=== PATIENT | female | born 1960 | race Caucasian/White ===

== ENCOUNTER 2018-08-08 19:29 | Inpatient (IN) | payer MEDICAID ==
[2018-08-08] MEDS ORDERED: NS 1,000 ML IV ONE ×2 (19:51)
--- NOTE | 2018-08-08 19:54 | EDPHY ---
H & P Stated Complaint: diabetic w/ high sugar Time Seen by Provider: 08/08/18 19:39 HPI/ROS: CHIEF COMPLAINT: Vomiting, hyperglycemia HISTORY OF PRESENT ILLNESS: Patient is diabetic female presents the emergency department vomiting hyperglycemia. The patient complains of generalized abdominal pain, chest pain and blurry vision earlier today. The patient denies any history of fall or trauma. She reports she has been using her insulin as per usual. She reports her blood sugars have been in the high 200 range by her report. Patient reports that she is also developed diarrhea. She complains of generalized abdominal pain. REVIEW OF SYSTEMS: A comprehensive 10 point review of systems is otherwise negative aside from elements mentioned in the history of present illness. Source: Patient - Personal History Current Tetanus/Diphtheria Vaccine: Unsure Current Tetanus Diphtheria and Acellular Pertussis (TDAP): Unsure - Medical/Surgical History Hx Asthma: No Hx Chronic Respiratory Disease: No Hx Diabetes: Yes Hx Cardiac Disease: No Hx Renal Disease: No Hx Cirrhosis: No Hx Alcoholism: No Hx HIV/AIDS: No Hx Splenectomy or Spleen Trauma: No Other PMH: DM2 - Social History Smoking Status: Never smoked - Physical Exam Exam: General Appearance: Obese female Eyes: Pupils equal and round no pallor or injection ENT, Mouth: Dry mucous membranes Respiratory: There are no retractions, lungs are clear to auscultation Cardiovascular: Tachycardic Gastrointestinal: Generalized abdominal tenderness Neurological: Moves all 4 extremities with 5/5 strength Skin: Warm and dry, no rashes, old ecchymosis noted on legs Musculoskeletal: Neck is supple nontender Extremities: symmetrical, full range of motion Psychiatric: Patient is oriented X 3, there is no agitation Constitutional: Initial Vital Signs Temperature (C) 36.8 C 08/08/18 19:32 Heart Rate 115 H 08/08/18 19:32 Respiratory Rate 22 H 08/08/18 19:32 Blood Pressure 109/48 L 08/08/18 19:32 O2 Sat (%) 98 08/08/18 19:32 O2 Delivery Mode Room Air Allergies/Adverse Reactions: ciprofloxacin [From Cipro HC] Allergy (Verified 08/08/18 19:35) insulin glargine [From Lantus U-100 Insulin] Allergy (Verified 08/08/18 19:36) Home Medications: Medication Instructions Recorded Carvedilol [Coreg (*)] 25 mg PO BIDMEAL 08/08/18 FLUoxetine [Prozac 20 MG (*)] 40 mg PO DAILY 08/08/18 Insulin Aspart [Novolog Flexpen] 0 unit SQ TIDMEAL 08/08/18 Insulin Detemir [Levemir Flextouch] 15 units SQ BID 08/08/18 Losartan Potassium [Cozaar 50 mg 50 mg PO DAILY 08/08/18 (*)] Multivitamins [Multivitamin (*)] 1 each PO DAILY 08/08/18 [place]-3 Fatty Acids [Fish Oil 1000 1,000 mg PO DAILY 08/08/18 mg (*)] Medical Decision Making - Diagnostics EKG Interpretation: EKG: Complete interpretation has been separately recorded in the [facility] archive. Summary impression: Sinus rhythm, rate 113, right bundle branch block Imaging Results: Imaging Impressions Chest X-Ray 08/08/18 19:48 Impression: Normal frontal view. ED Course/Re-evaluation: The patient presents to the ED with hyperglycemia, vomiting and acidosis consistent with acute diabetic ketoacidosis. Patient's blood sugar is greater than 1000 and her anion gap is 29. The patient had an IV established. She received 2 L of normal saline. The DKA protocol has been initiated The patient's initial potassium was significantly. She is started on insulin drip. Consultation is made with the hospitalist service for ICU admission. The patient was noted to have an initial potassium of 6.9. She was treated with a bolus of insulin and 1 g of IV calcium and 50 mEq of sodium bicarb. Dr. Matt Freeman is evaluating the patient in the ED at 8:45 p.m.. Repeat I-STAT performed at 9:00 p.m. demonstrates improvement of the patient's potassium to 5.6. Glucose is still greater than 700. The patient will be transferred to the ICU for further care. Differential Diagnosis: Differential diagnosis considered includes renal failure, dehydration, diabetic ketoacidosis, metabolic abnormality Critical Care Time: Critical care time exclusive of procedures and exclusive of the PA's time was 35 minutes, performed by myself, Manjinder Harris MD. The patient presents the ED with diabetic ketoacidosis, renal failure and mild hyperkalemia. She will require admission to the intensive care unit. She was started on insulin drip in the emergency department. - Data Points Laboratory Results: Laboratory Results 08/08/18 19:43 08/08/18 19:43 08/08/18 08/08/18 08/08/18 20:05 19:48 19:46 WBC RBC Hgb POC Hgb 15.6 gm/dL gm/dL (12.6-16.3) Hct POC Hct 46 % % (38-47) MCV MCH MCHC RDW Plt Count MPV Neut % (Auto) Lymph % (Auto) [place] % (Auto) Eos % (Auto) Baso % (Auto) Nucleat RBC Rel Count Absolute Neuts (auto) Absolute Lymphs (auto) Absolute Monos (auto) Absolute Eos (auto) Absolute Basos (auto) Absolute Nucleated RBC Immature Gran % Immature Gran # Puncture Site VENOUS Patient Temperature 37.0 DEGREES DEGREES VBG pH 7.07 L (7.31-7.42) VBG HCO3 8 mEQ/L L mEQ/L (22-26) VBG Total CO2 9 mEq/L L mEq/L (21-27) VBG O2 Saturation 84 % H % (65-75) VBG Base Excess -21.6 mEq/L L mEq/L (-2.5-2.5) Mixed VBG pCO2 28 mmHg L mmHg (40-44) Mixed VBG pO2 66 mmHG H mmHG (35-40) POC Sodium 127 mEq/L L mEq/L (135-145) Sodium POC Potassium 6.4 mEq/L H* mEq/L (3.3-5.0) Potassium POC Chloride 98 mEq/L mEq/L (97-110) Chloride Carbon Dioxide Anion Gap POC BUN 42 mg/dL H mg/dL (7-23) BUN Creatinine POC Creatinine 1.8 mg/dL H mg/dL (0.6-1.0) Estimated GFR Glucose POC Glucose > 700 mg/dL H* mg/dL (70-100) Calcium Total Bilirubin Conjugated Bilirubin Unconjugated Bilirubin AST ALT Alkaline Phosphatase POC Troponin I 0.04 ng/mL ng/mL (0.00-0.08) Total Protein Albumin Lipase Beta-Hydroxybutyrate 08/08/18 08/08/18 08/08/18 19:43 19:43 19:43 WBC RBC Hgb POC Hgb Hct POC Hct MCV MCH MCHC RDW Plt Count MPV Neut % (Auto) Lymph % (Auto) [place] % (Auto) Eos % (Auto) Baso % (Auto) Nucleat RBC Rel Count Absolute Neuts (auto) Absolute Lymphs (auto) Absolute Monos (auto) Absolute Eos (auto) Absolute Basos (auto) Absolute Nucleated RBC Immature Gran % Immature Gran # Puncture Site Patient Temperature VBG pH 7.11 L (7.31-7.42) VBG HCO3 VBG Total CO2 VBG O2 Saturation VBG Base Excess Mixed VBG pCO2 Mixed VBG pO2 POC Sodium Sodium 131 mEq/L L mEq/L (135-145) POC Potassium Potassium 6.9 mEq/L H* mEq/L (3.3-5.0) POC Chloride Chloride 93 mEq/L L mEq/L (97-110) Carbon Dioxide 9 mEq/l L* mEq/l (22-31) Anion Gap 29 mEq/L H mEq/L (8-16) POC BUN BUN 46 mg/dL H mg/dL (7-23) Creatinine 2.0 mg/dL H mg/dL (0.6-1.0) POC Creatinine Estimated GFR 26 Glucose 1083 mg/dL H* mg/dL (70-100) POC Glucose Calcium 9.7 mg/dL mg/dL (8.5-10.4) Total Bilirubin 0.8 mg/dL mg/dL (0.1-1.4) Conjugated Bilirubin 0.4 mg/dL mg/dL (0.0-0.5) Unconjugated Bilirubin 0.4 mg/dL mg/dL (0.0-1.1) AST 20 IU/L IU/L (14-46) ALT 40 IU/L IU/L (9-52) Alkaline Phosphatase 89 IU/L IU/L (38-126) POC Troponin I Total Protein 6.6 g/dL g/dL (6.3-8.2) Albumin 3.8 g/dL g/dL (3.5-5.0) Lipase 59 IU/L IU/L (23-300) Beta-Hydroxybutyrate Pending 08/08/18 19:43 WBC 10.94 10^3/uL H 10^3/uL (3.80-9.50) RBC 4.38 10^6/uL 10^6/uL (4.18-5.33) Hgb 13.3 g/dL g/dL (12.6-16.3) POC Hgb Hct 42.8 % % (38.0-47.0) POC Hct MCV 97.7 fL fL (81.5-99.8) MCH 30.4 pg pg (27.9-34.1) MCHC 31.1 g/dL L g/dL (32.4-36.7) RDW 15.2 % % (11.5-15.2) Plt Count 279 10^3/uL 10^3/uL (150-400) MPV 11.8 fL H fL (8.7-11.7) Neut % (Auto) 83.4 % H % (39.3-74.2) Lymph % (Auto) 11.5 % L % (15.0-45.0) [place] % (Auto) 4.5 % % (4.5-13.0) Eos % (Auto) 0.0 % L % (0.6-7.6) Baso % (Auto) 0.4 % % (0.3-1.7) Nucleat RBC Rel Count 0.0 % % (0.0-0.2) Absolute Neuts (auto) 9.13 10^3/uL H 10^3/uL (1.70-6.50) Absolute Lymphs (auto) 1.26 10^3/uL 10^3/uL (1.00-3.00) Absolute Monos (auto) 0.49 10^3/uL 10^3/uL (0.30-0.80) Absolute Eos (auto) 0.00 10^3/uL L 10^3/uL (0.03-0.40) Absolute Basos (auto) 0.04 10^3/uL 10^3/uL (0.02-0.10) Absolute Nucleated RBC 0.00 10^3/uL 10^3/uL (0-0.01) Immature Gran % 0.2 % % (0.0-1.1) Immature Gran # 0.02 10^3/uL 10^3/uL (0.00-0.10) Puncture Site Patient Temperature VBG pH VBG HCO3 VBG Total CO2 VBG O2 Saturation VBG Base Excess Mixed VBG pCO2 Mixed VBG pO2 POC Sodium Sodium POC Potassium Potassium POC Chloride Chloride Carbon Dioxide Anion Gap POC BUN BUN Creatinine POC Creatinine Estimated GFR Glucose POC Glucose Calcium Total Bilirubin Conjugated Bilirubin Unconjugated Bilirubin AST ALT Alkaline Phosphatase POC Troponin I Total Protein Albumin Lipase Beta-Hydroxybutyrate Medications Given: Discontinued Medications Sodium Chloride (Ns) 1,000 mls @ 0 mls/hr IV EDNOW ONE; Wide Open PRN Reason: Protocol Stop: 08/08/18 19:52 Last Admin: 08/08/18 19:56 Dose: 1,000 mls Sodium Chloride (Ns) 1,000 mls @ 0 mls/hr IV EDNOW ONE; Wide Open PRN Reason: Protocol Stop: 08/08/18 19:52 Last Admin: 08/08/18 19:56 Dose: 1,000 mls Insulin Human Regular 100 unit / Miscellaneous Medication 1 ea/ Sodium Chloride 101 mls @ 0 mls/hr IV EDNOW ONE; Per Protocol PRN Reason: Protocol Stop: 08/08/18 20:05 Last Admin: 08/08/18 20:32 Dose: 101 mls Insulin Human Regular (Humulin R) 8 unit IVP ONCE ONE Stop: 08/08/18 20:32 Last Admin: 08/08/18 20:41 Dose: 8 units Point of Care Test Results: Chemistry 08/08/18 08/08/18 19:48 19:46 POC Sodium 127 mEq/L L mEq/L (135-145) POC Potassium 6.4 mEq/L H* mEq/L (3.3-5.0) POC Chloride 98 mEq/L mEq/L (97-110) POC BUN 42 mg/dL H mg/dL (7-23) POC Creatinine 1.8 mg/dL H mg/dL (0.6-1.0) POC Glucose > 700 mg/dL H* mg/dL (70-100) POC Troponin I 0.04 ng/mL ng/mL (0.00-0.08) ISTAT H&H 08/08/18 19:48 POC Hgb 15.6 gm/dL gm/dL (12.6-16.3) POC Hct 46 % % (38-47) Departure - Departure Disposition: [facility] Inpatient Acute Clinical Impression: Diabetic ketoacidosis, Hyperkalemia, Renal insufficiency, Dehydration Condition: Critical
[2018-08-08 19:56] LABS: PLATELET COUNT 279 10^3/uL (150-400)
[2018-08-08] MEDS ORDERED: INSULIN REGULAR HUMAN 100 UNIT, COSIGN. REQUIRED 1 EA in NS 100 ML IV ONE (20:04)
[2018-08-08] MEDS ORDERED: INSULIN REGULAR HUMAN 100 UNIT/ML UNIT IVP ONE (20:31)
[2018-08-08] MEDS ORDERED: CALCIUM CHLORIDE 1 GM/10 ML INJ IV ONE (20:36)
[2018-08-08] MEDS ORDERED: SODIUM BICARBONATE 50 MEQ/50 ML SYR IVP ONE (20:46)
[2018-08-08] MEDS ORDERED: ONDANSETRON 4 MG/2 ML VIAL IVP ONE (20:48)
[2018-08-08] MEDS ORDERED: INSULIN REGULAR HUMAN 100 UNIT in NS 100 ML IV SCH (21:00)
[2018-08-08] MEDS ORDERED: D10W 1,000 ML IV SCH (21:00)
[2018-08-08] MEDS ORDERED: D50W 25 GM/50 ML SYR IVP PRN (21:00)
[2018-08-08] MEDS ORDERED: D50W 25 GM/50 ML VIAL IVP PRN (21:00)
[2018-08-08] MEDS ORDERED: CALCIUM CHLORIDE 1 GM/10 ML INJ ONE (21:09)
[2018-08-08] MEDS ORDERED: HYDROCODONE/APAP 5/325 TAB PO PRN (21:20)
[2018-08-08] MEDS ORDERED: ONDANSETRON 4 MG/2 ML VIAL IVP PRN (21:20)
[2018-08-08] MEDS ORDERED: ONDANSETRON DISINTEGRATING 4 MG TAB PO PRN (21:20)
[2018-08-08] MEDS ORDERED: LORazepam 2 MG/ML INJ IVP PRN (21:20)
[2018-08-08] MEDS ORDERED: ACETAMINOPHEN 325 MG TAB PO PRN (21:20)
[2018-08-08] MEDS ORDERED: HYDROmorphONE/DILAUDID 1 MG/ML INJ IVP PRN (21:20)
[2018-08-08] MEDS ORDERED: oxyCODONE IR 5 MG TAB PO PRN (21:20)
[2018-08-08] MEDS ORDERED: PROMETHAZINE HCL 25 MG/ML INJ IVP PRN (21:20)
--- NOTE | 2018-08-08 21:23 | CPEKG ---
Test Reason : OPEN Blood Pressure : / mmHG Vent. Rate : 113 BPM Atrial Rate : 114 BPM P-R Int : 126 ms QRS Dur : 186 ms QT Int : 400 ms P-R-T Axes : -83 -85 044 degrees QTc Int : 549 ms Sinus or ectopic atrial tachycardia RBBB and LAFB Confirmed by Manjinder Harris ([id number]) on 08/08/2018 9:23:23 PM Referred By: Confirmed By:Manjinder Harris
--- NOTE | 2018-08-08 21:23 | CPEKG ---
Test Reason : OPEN Blood Pressure : / mmHG Vent. Rate : 122 BPM Atrial Rate : 122 BPM P-R Int : 106 ms QRS Dur : 153 ms QT Int : 348 ms P-R-T Axes : 043 -70 045 degrees QTc Int : 496 ms Atrial flutter with predominant 2:1 AV block RBBB and LAFB Confirmed by Manjinder Harris ([id number]) on 08/08/2018 9:23:15 PM Referred By: Confirmed By:Manjinder Harris
[2018-08-08] MEDS ORDERED: PROTOCOL POTASSIUM 1 DOSE MISC PRN ×2 (21:55)
[2018-08-08] MEDS ORDERED: NS 500 ML IV ONE ×2 (22:00→23:00)
--- NOTE | 2018-08-08 22:05 | GHP ---
DATE OF ADMISSION: 08/08/2018 CHIEF COMPLAINT: Nausea, vomiting, diarrhea. HISTORY: This is a 57-year-old [place], who is an insulin-dependent diabet ic, and presenting with complaints of abdominal pain as well as nausea, vomiting, and diarrhea. She notes this has been going on throughout the entire day. She states her entire abdomen hurts. She is having frequent runny stools. She notes she has been using her insulin per her usual routine. She notes her blood sugars have been in the high 200s all day. She denies any sick contacts. She is in significant distress at the time of my evaluation and the history is, therefore, limited by that. PAST MEDICAL HISTORY: 1. Type 2 diabetes. 2. Hypertension. 3. Depression, NOS. ALLERGIES: Ciprofloxacin and insulin glargine. SOCIAL HISTORY: Patient is from [place] and is currently visiting [place]. She denies smoking, drinking, or drug use. FAMILY HISTORY: This is reviewed and noncontributory. REVIEW OF SYSTEMS: A 10-point review of systems obtained and negative except as per HPI. HOME MEDICATIONS: 1. Multivitamin. 2. [place]-3 fatty acid. 3. Prozac. 4. Losartan. 5. Carvedilol. 6. Insulin detemir. 7. Insulin aspart. PHYSICAL EXAM: VITAL SIGNS: BP 101/81, heart rate 121, respiratory rate 24, O2 saturation 100% on 4 L. Notably, she was also 98% on room air. Temperature is 36.8. GENERAL APPEARANCE: This is an ob marissa female. She is awake and alert. She is agitated and in distress. EYES: Anicteric. H ENT: Dry mucous membranes. CARDIOVASCULAR: Tachycardic, regular, no M/R/G. PULMONARY: CTA bilaterally to anterior exam. ABDO MEN: Obese, soft. Bowel sounds are decreased. She is tender to palpation diffusely without rebound or guarding. EXTREMITIES: Trace bilateral lower extremity edema. SKIN: Warm, dry, well perfused. NEURO/PSYCH: Oriented and appropriate. CLINICAL DATA: Labs reviewed. Notable for a sodium of 131, potassium of 6.9, chloride of 93, bicarb of 9 with an anion gap of 29, BUN of 46, and a creatinine of 2.0. Glucose is 1083 on arrival. Whit e blood cell count of 10.94. Chest x-ray personally reviewed and interpreted shows normal frontal view of the chest. EKG personally reviewed and interpreted shows atrial flutter with a right bundle branch block and lef t anterior fascicular block. ASSESSMENT AND PLAN: This is a 57-year-old female with type 2 diabetes, presenting with nausea, vomi ting, diarrhea, and diabetic ketoacidosis. 1. Diabetic ketoacidosis. Patient with profound electrolyte abnormalities including a potassium of 6.9. She is very uncomfortable appearing. Presumably, reason for her diabetic ketoacidosis is acute gastrointestinal illness. She has been started on aggressive IV fluid resuscitation by the diabetic ketoacidosis protocol. She has also been treated for her hyperkalemia. 2. Critical hyperkalemia. Initial potassium of 6.9. She has been given a bolus of insulin, calcium , sodium bicarbonate with improvement of her potassium with intravenous fluids and treatment as per neville white. We will continue to monitor serial BMPs. 3. Abnormal EKG. The patient noted to have EKG consistent with either atrial flutter versus sinus o r ectopic atrial tachycardia with bifascicular block. Unknown priors. She does have significant jessie ctrolyte abnormalities as per above. She will be monitored on telemetry. Initial troponin was negat yaya, and we will continue to trend. 4. Acute kidney injury. Unknown baseline, but suspect this is acute kidney injury secondary to volu me depletion in the setting of diabetic ketoacidosis. Creatinine is already beginning to trend down, status post volume resuscitation. We will continue to trend. 5. Pseudohyponatremia in the setting of profound hyperglycemia. 6. Abdominal pain. The patient does seem to be very uncomfortable with what seems to be likely acut e gastroenteritis with nausea, vomiting, and diarrhea. Should she fail to improve or pain become mor e profound, would need to obtain abdominal CT and will have a low threshold to do so should she worse n overnight. She does not appear to have a surgical abdomen at this time. 7. Inpatient status. Patient will be admitted to intensive care unit. 8. Greater than 35 minutes critical care time spent with this patient interpreting labs, EKG, and im aging and in coordination of care with the emergency room doctor and nurses. 9. Patient is new to my care. Old records reviewed, summarized as per History of Present Illness an d Past Medical History. Care plan reviewed with emergency room physician and with the patient's frie nd present at bedside. /[id number]/MODL
[2018-08-09] MEDS ORDERED: NS 1,000 ML IV SCH
[2018-08-09] MEDS ORDERED: ASPIRIN 325 MG TAB PO ONE (02:58)
[2018-08-09] MEDS ORDERED: ENOXAPARIN 80 MG/0.8 ML SYR SC SCH (03:00)
[2018-08-09 04:43] LABS: PLATELET COUNT 241 10^3/uL (150-400)
[2018-08-09] MEDS: OMEGA-3 FATTY ACIDS 1,000 MG CAP PO SCH (08:18)
[2018-08-09] MEDS: CARVEDILOL 25 MG TAB PO SCH ×2 (08:18→18:26)
[2018-08-09] MEDS: FLUoxetine 20 MG CAP PO SCH (08:18)
[2018-08-09] MEDS: LOSARTAN POTASSIUM 50 MG TAB PO SCH (08:18)
[2018-08-09] MEDS: MULTIVITAMINS 1 EACH TAB PO SCH (08:18)
[2018-08-09] MEDS ORDERED: ENOXAPARIN 40 MG/0.4 ML SYR SC SCH (09:00)
[2018-08-09] MEDS ORDERED: D50W 25 GM/50 ML SYR IVP PRN (09:30)
--- NOTE | 2018-08-09 09:31 | ECHO ---
[email or web address] [address] [address] Main: [phone] Fax: [email or web address] Echocardiogram Name: IJEOMA KAISER MR#: [id number] Study Date: 08/09/2018 Study Time: 08:50 AM Date of : 1960 Age: 57 year(s) Height: 170.2 cm (67 in.) Weight: 87.54 kg (193 lb.) BSA: 1.99 m2 Gender: Female Examination: Echo Indication: RBBB, DB Ketoacidosis Image Quality: Contrast: Requested by: Soila Helm BP: 124 mmHg/52 mmHg Heart Rate: Rhythm: Indication: RBBB, DB Ketoacidosis Procedure Staff Human Resources Records Clerk: Talon Peterson RDCS Reading Physician: Tamela Cabrera MD Requesting Provider: Solia Helm Conclusions: Normal size left ventricle. No LV hypertrophy. Normal global systolic LV function. EF is 62 %. No regional wall motion abnormality. Grade 1 diastolic dysfunction (abnormal relaxation). Elevated left ventricular filling pressures.. Normal size right ventricle. Normal RV function. The left atrium is mildly dilated. Trivial to mild tricuspid valve regurgitation. The pulmonary artery pressure is mildly increased. Estimated PASP is 45 mmHg. There is no previous echocardiogram for comparison. Measurements: Chambers Valvular Assessment AV/MV Valvular Assessment TV/PV Normal Normal Normal Name Value Range Name Value Range Name Value Range Ao Josiane (MM): 2.8 cm (2.2 cm-3.7 AV Vmax: 1.75 m/s (1 m/s-1.7 TR Vmax: 3.15 mm/s ( - ) cm) m/s) TR PGmax: 40 mmHg ( - ) IVSd (2D): 0.8 cm (0.6 cm-1.1 AV maxP mmHg ( - ) syst. PAP: 45 mmHg ( - ) cm) LVOT Vmax: 1.13 m/s (0.7 m/s-1.1 PV Vmax: 1.24 m/s (0.6 m/s-0.9 LVDd (2D): 4.8 cm (3.9 cm-5.3 m/s) m/s) cm) MV E Vmax: 0.85 m/s ( - ) PV PGmax: 6 mmHg ( - ) LVDs (2D): 3.2 cm (2.1 cm-4 MV A Vmax: 0.93 m/s ( - ) cm) MV E/A: 0.91 ( - ) LVPWd (2D): 1.1 cm ( - ) LVEF (2D): 62 (>=54 %) Continued Measurements: Patient: IJEOMA KAISER Study Date: 08/09/2018 Page 1 of 2 08:50 AM Chambers Valvular Assessment AV/MV Valvular Assessment TV/PV Name Value Name Value Name Value LADs Lon.2 cm MV E' Septal: 0.05 m/s CVP (est.): 5 mmHg LA Area: 23.0 cm2 MV E/E' Septal: 18.60 LA Volume: 70 ml MV E/E' Lateral: 13.70 LA Volume Index: 35.2 ml/m2 Findings: Left Ventricle: Normal size left ventricle. No LV hypertrophy. Normal global systolic LV function. EF is 62 %. No regional wall motion abnormality. Grade 1 diastolic dysfunction (abnormal relaxation). Elevated left ventricular filling pressures.. Right Ventricle: Normal size right ventricle. Normal RV function. Left Atrium: The left atrium is mildly dilated. Right Atrium: The right atrium is normal in size. Mitral Valve: The mitral valve is normal in appearance and function. There is no mitral valve regurgitation. Aortic Valve: The aortic valve is tri-leaflet. The aortic valve is normal in appearance and function. Tricuspid Valve: The tricuspid valve appears normal. Trivial to mild tricuspid valve regurgitation. The pulmonary artery pressure is mildly increased. Estimated PASP is 45 mmHg. Pulmonic Valve: The pulmonic valve is normal in appearance and function. Aorta: The aorta is normal. Pericardium: No pericardial effusion. (No Signature Object) Patient: IJEOMA KAISER Study Date: 08/09/2018 Page 2 of 2 08:50 AM [id number]
--- NOTE | 2018-08-09 09:42 | HOSPPROG ---
Hospitalist Progress Note Assessment/Plan: DKA - gap closed, bg's in 100's on insulin drip, requiring ~6 units/hr. -transition to SC insulin, will increase to Lantus 20 BID with SSI -check a1c Positive troponin - may represent demand ischemia. Discussed case and reviewed EKG from admission with Dr. Cabrera, suspect rate related RBBB, resolved this am, in NSR. She has remained CP free, but consider if her abdominal pain last night may have been an anginal equivalent. Risk factors include DM, htn. -trend trop to peak -echo this am, per Dr. Cabrera, nl LV function, no WMA -Mely stress in am -check lipid status in am and indication for statin -cont ASA, BB LIZZ - likely pre-renal in setting of DKA, nausea and vomiting. Cr trending down from 2.0 to 1.3 -trend Hyperkalemia - resolved Abdominal pain - possibly related to DKA. Resolved this am Full code DVT PPLX - Lovenox Dispo - cont inpt Subjective: Pt feels much better this am. Denies CP or SOB. No more abdominal pain, nausea or vomiting. Had a BM this am. No fevers/chill. Objective: Vital Signs Temp Pulse Resp BP Pulse Ox 37.1 C 84 12 124/52 H 100 08/08/18 21:53 08/09/18 08:18 08/09/18 08:00 08/09/18 08:18 08/09/18 08:00 Laboratory Results 08/09/18 04:00 08/09/18 06:00 08/08/18 08/09/18 08/10/18 05:59 05:59 05:59 Intake Total 5454.2 Output Total 850 Balance 4604.2 - Physical Exam Constitutional: no apparent distress Eyes: PERRL Ears, Nose, Mouth, Throat: moist mucous membranes Cardiovascular: regular rate and rhythym Respiratory: no respiratory distress, clear to auscultation Gastrointestinal: normoactive bowel sounds, soft, non-tender abdomen Skin: warm Musculoskeletal: full muscle strength Neurologic: AAOx3 Psychiatric: interacting appropriately ICD10 Worksheet Patient Problems: Problems Problem Status Onset Dehydration Acute Diabetic ketoacidosis Acute Hyperkalemia Acute Renal insufficiency Acute
[2018-08-09] MEDS: INSULIN GLARGINE 100 UNITS/ML UNIT SC SCH ×2 (09:56→22:46)
--- NOTE | 2018-08-09 10:08 | PDMN ---
Medical Necessity Medical necessity: Pt meets inpt criteria per MD order and MCG M-130, Diabetes. 57 y/o admitted w/diabetic ketoacidosis w/bl glucose 1083 and Beta- Hydroxybutyrate 9.8 and critical hyperkalemia (potassium 6.9 on admission), abnormal EKG, acute kidney injury w/BUN 46 and creat 2.0 initially. Insulin gtt , IVF resuscitation per diabetic ketoacidosis protocol, serial BMP's, cardiology consult, pain management, ICU monitoring, following troponins which were elevated this AM, ECHO. anticipate>2MN for ongoing med nec eval/treatment.
[2018-08-09] MEDS: INSULIN LISPRO 100 UNIT/ML SC SCH ×3 (14:15→22:46)
--- NOTE | 2018-08-09 15:55 | ASMTCMCOM ---
CM Note CM Note Notes: Patient admitted with DKA, e-lyte imbalace, LIZZ. Many of her symptoms have resolved with insulin and rehydration. She will have a stress test tomorrow d/t positive troponin. Patient lives in [place], she is here visiting friends and family. She will discharge home with them ([place] [facility]) when medically stable. Case Management available for any d.c needs; however, patient is unlikely to have any. Date Signed: 08/09/2018 03:52 PM Electronically Signed By:Paty Bhatti RN
[2018-08-10 04:26] LABS: PLATELET COUNT 229 10^3/uL (150-400)
[2018-08-10] MEDS ORDERED: ENOXAPARIN 40 MG/0.4 ML SYR SC SCH (09:00)
[2018-08-10] MEDS ORDERED: ASPIRIN EC 81 MG TAB PO SCH (09:00)
[2018-08-10] MEDS: CARVEDILOL 25 MG TAB PO SCH (09:47)
[2018-08-10] MEDS: OMEGA-3 FATTY ACIDS 1,000 MG CAP PO SCH (09:47)
[2018-08-10] MEDS: MULTIVITAMINS 1 EACH TAB PO SCH (09:48)
[2018-08-10] MEDS: INSULIN GLARGINE 100 UNITS/ML UNIT SC SCH (09:48)
[2018-08-10] MEDS: INSULIN LISPRO 100 UNIT/ML SC SCH ×2 (09:48→12:49)
[2018-08-10] MEDS: FLUoxetine 20 MG CAP PO SCH (09:48)
[2018-08-10] MEDS: LOSARTAN POTASSIUM 50 MG TAB PO SCH (09:48)
[2018-08-10] MEDS ORDERED: REGADENOSON 0.4 MG/5 ML SYR IVP ONE (09:51)
--- NOTE | 2018-08-10 11:24 | CPEKG ---
Test Reason : OPEN Blood Pressure : / mmHG Vent. Rate : 070 BPM Atrial Rate : 070 BPM P-R Int : 133 ms QRS Dur : 102 ms QT Int : 410 ms P-R-T Axes : 052 -24 002 degrees QTc Int : 443 ms Sinus rhythm Probable left ventricular hypertrophy Confirmed by Tamela Cabrera ([id number]) on 08/10/2018 11:23:51 AM Referred By: Confirmed By:Tamela Cabrera
--- NOTE | 2018-08-10 11:28 | CPR ---
PROCEDURE PERFORMED: Lexiscan injection of Lexiscan MPI study. INDICATION FOR PROCEDURE: Mildly elevated troponin, history of diabetes, unable to run on treadmill, and chest pressure. PRE: After obtaining informed consent and ensuring patient's n.p.o. status of caffeine for greater than 12 hours, patient was placed on electrocardiogram. Initial EKG shows sinus rhythm, leftward axi s, nonspecific T-wave abnormalities in inferior leads. Patient denies any chest pain, pressure, or s ymptoms suggesting ischemia. Initial blood pressure 127/71, saturation 94%. INJECTION: Patient was given Lexiscan slow IV push followed by nuclear isotope. Within 1 minute, king everett reported no significant symptom changes. Did note heart rate did increase mildly, but no signi ficant EKG changes. Within 5 minutes, patient remained symptom free. No EKG changes. Final blood p ressure of 119/62, saturation 97%. IMPRESSION: A 57-year-old female, diabetic admitted with atrial fibrillation with rapid heart rate i n diabetic ketoacidosis, noted to have mildly elevated troponin on downward trend. Reported no chest pain or pressure. Being evaluated for cardiac ischemia. Underwent Lexiscan MPI injection, with no significant EKG changes. No symptoms with medications. Currently, her vital signs are stable, she w ill be taken down to Nuclear Medicine for post-stress imaging. /[id number]/MODL
[2018-08-10 12:02] VITALS: BP 137/78
--- NOTE | 2018-08-10 14:21 | ASDISCHSUM ---
Discharge Information Plan Status:Home with No Needs Medically Cleared to Leave:08/10/2018 Discharge Date:08/10/2018 CM D/C Disposition:Home, Routine, Self-Care ADT D/C Disposition:Home, Routine, Self-Care Projected Discharge Date:08/10/2018 Transportation at D/C: Discharge Delay Reason: Follow-Up Date:08/10/2018 Discharge Slot: Final Diagnosis: Placement Information Patient Contact Information Contact Name:ELSIE Relationship:Cousin Address: Work Phone: City:[place] Alternate Phone: [facility]/Environmental Operations Code:[place] Email: Financial Information Financial Class:Medicaid Primary Plan Desc:[facility] [place] MEDICAID Primary Plan Number:[id number] Secondary Plan Desc: Secondary Plan Number: Assessment Information LACE LACE Length of stay for Answers: 1 day current admission Acuity / Level of Answers: Yes Care: Did the patient have an inpatient admission? Comorbidities - select Answers: Coronary Artery Disease all that apply Diabetes (uncontrolled or controlled) # of Emergency department Answers: 1-2 visits in the last 6 months Score: 8 Date Signed: 08/10/2018 02:18 PM Electronically Signed By:Bessy Trevino RN [facility] CM Progress Note CM Note CM Note Notes: Patient admitted with DKA, e-lyte imbalace, LIZZ. Many of her symptoms have resolved with insulin and rehydration. She will have a stress test tomorrow d/t positive troponin. Patient lives in [place], she is here visiting friends and family. She will discharge home with them ([place] or [facility]) when medically stable. Case Management available for any d.c needs; however, patient is unlikely to have any. Date Signed: 08/09/2018 03:52 PM Electronically Signed By:Paty Bhatti RN Case Management Discharge Plan Note Case Management Discharge Discharge Order Complete? Answers: Yes Patient to Obtain Answers: Independently Medications Transportation Arranged Answers: Family/Friends Discharge Comments Notes: 08/10/2018 Case Management Note Pt to discharge independent with follow up as directed. Date Signed: 08/10/2018 02:19 PM Electronically Signed By:Bessy Trevino RN Intervention Information
--- NOTE | 2018-08-15 09:06 | GDS ---
DISCHARGE DIAGNOSES: 1. Diabetic ketoacidosis, resolved. 2. Type 2 diabetes mellitus, resolved. 3. Elevated troponin, likely secondary to strain in the setting of diabetic ketoacidosis. 4. Acute kidney injury, resolved. 5. Hyperkalemia, resolved. CONSULTANTS: None. HISTORY OF DETAILS: Please see history and physical dated August 08, 2018. In brief, the patient is a 57-year-old female with a history of type 2 diabetes who presents to the emergency department w ith nausea, vomiting, diarrhea. She was found to be in diabetic ketoacidosis and was admitted to the hospital for further management. HOSPITAL COURSE: The patient was admitted to the intensive care unit. Started on DKA protocol. She presented with acidemia and hyperkalemia as well as an abnormal EKG. Her acidemia and hyperkalemia resolved with IV fluids and insulin drip and DKA protocol. She had an episode of wide-complex tachyc ardia, likely atrial flutter or ectopic atrial tachycardia. Once her electrolyte abnormalities corre cted and her DKA resolved, her EKG returned to normal sinus rhythm. It was noted she had a mildly el evated troponin. She underwent nuclear medicine Lexiscan stress test prior to discharge, which revea led no evidence of prior infarct or ischemia. In addition, she remained chest pain free throughout [facility] hospitalization. On the day of discharge, her vital signs were stable with a blood pressure of 13 7/78, heart rate 61, normal sinus rhythm, 98% on room air. It is noted that her hemoglobin A1c was 10. Therefore, her Levemir dose is increased at discharge fr om 15 units twice daily to 20 units twice daily and she will continue sliding scale bolus insulin bef ore meals. DISPOSITION: Patient is discharged home in stable condition. FOLLOWUP: She will follow up with her primary care provider, Dr. Marianela Penny. DISCHARGE MEDICATIONS: Please see [facility] for complete updated outpatient medication list. As note d her insulin detemir dose is increased from 15 units b.i.d. to 10 units b.i.d. She will continue al l other outpatient medications as previously prescribed including losartan 50 mg p.o. daily, carvedil ol 25 mg p.o. b.i.d., insulin start sliding scale q.a.c., h.s., fluoxetine 40 mg p.o. daily, [place]-3 fatty acids, and multivitamins. /[id number]/MODL
== END 2018-08-10 15:58 | disposition home or self-care (01) | DRG 420 ==
LOC: F2N 21:34 → F2W 08-09 14:55
PROVIDERS: ADMIT Internal Medicine; ATTEND Internal Medicine
DX: E11.10 Type 2 diabetes mellitus with ketoacidosis without coma (principal); E87.5 Hyperkalemia; I48.92 Unspecified atrial flutter; N17.9 Acute kidney failure, unspecified; I10 Essential (primary) hypertension; F32.9 Major depressive disorder, single episode, unspecified; I45.2 Bifascicular block; R10.9 Unspecified abdominal pain; R79.89 Other specified abnormal findings of blood chemistry
CPT/HCPCS: 82435-PO; 82565-PO; 82947-PO; 82947-QW; 84132-PO; 84295-PO; 84484-PO; 84520-PO; 85014-PO; 96365; A9500; J1650; J1815; J2405; J2785